=== PATIENT | male | born 1950 | race Caucasian/White ===

== ENCOUNTER 2020-10-18 09:26 | Day surgery (SDC) | payer MEDICARE ==
[~2020-10-18 09:26] MED LIST: Midazolam 1 MG/ML 2 ML SDV ONE; Propofol 200 MG/20 ML SDV ONE; fentaNYL 100 MCG/2 ML SDV ONE
[2020-10-18] MEDS ORDERED: Sodium Chloride 0.9% 1,000 ML IV SCH (10:00)
[2020-10-18] MEDS ORDERED: Midazolam 1 MG/ML 2 ML SDV ONE (10:32)
[2020-10-18] MEDS ORDERED: Propofol 200 MG/20 ML SDV ONE (10:32)
[2020-10-18] MEDS ORDERED: fentaNYL 100 MCG/2 ML SDV ONE (10:32)
--- NOTE | 2020-10-18 14:56 | OR ---
DATE OF PROCEDURE: 10/18/2020 SURGEON: Kei Saleh MD PROCEDURE PERFORMED: Colonoscopy. FINDINGS: 1. Ascending colon polyp, approximately 5 mm, completely removed using cold biopsy forceps. 2. Ascending colon polyp #2, approximately 5 mm, completely removed using cold biopsy forceps. 3. Colon mass at 60 cm, partially removed using endoscopic mucosal resection. 4. Descending colon polyp, approximately 1 cm, completely removed using hot snare wire device. 5. Significant tortuous sigmoid colon. COMPLICATIONS: None. HARVESTING CONTRACTOR: None. ANESTHESIA: MAC. PREOPERATIVE DIAGNOSIS: Screening colonoscopy. POSTOPERATIVE DIAGNOSIS: Screening colonoscopy. RISKS: Risks, benefits, alternatives, and limitations including, but not limited to infection, bleeding, perforation, false positives, and false negatives were explained to the patient, and he wished to proceed. PROCEDURE IN DETAIL: The patient was placed in the left lateral decubitus position. Digital rectal exam was performed without abnormality. The scope was introduced and advanced atraumatically to the ileocecal valve. A photo was taken of the appendiceal orifice. The scope was brought back, and the 2 small ascending colon polyps were identified and completely removed using cold biopsy forceps. No abnormal bleeding was noted. At approximately 60 cm, there was a large mass which encompassed approximately 1/3rd of the circumference of the colon. A large majority of this was removed using endoscopic mucosal resection techniques which included elevation in all 4 quadrants using Kandis ink and resection using hot snare wire device. No abnormal bleeding was noted after removal. Within the descending colon, the snare wire device was then used to remove an approximately 1 cm polyp. No other abnormalities were noted. The prep was marginal with large amount of liquid stool remaining. Suction and irrigation techniques were used to remove the majority of this. No abnormalities on retroflex. Greater than 8 minutes was spent removing the scope. The patient tolerated the procedure well. Kei Saleh MD /[id number]
== END 2020-10-18 12:37 | disposition home or self-care (01) ==
LOC: JP.SDS 09:26
PROVIDERS: ATTEND Surgery
DX: Z12.11 Encounter for screening for malignant neoplasm of colon (principal); D12.2 Benign neoplasm of ascending colon; D12.4 Benign neoplasm of descending colon; D12.6 Benign neoplasm of colon, unspecified; K63.89 Other specified diseases of intestine; E78.5 Hyperlipidemia, unspecified; I10 Essential (primary) hypertension; Z85.46 Personal history of malignant neoplasm of prostate
CPT/HCPCS: 45380; 45381; 45385; 45390; J2250; J2704; J3010; J7030; 88305

== ENCOUNTER 2020-12-13 07:23 | Day surgery (SDC) | payer MEDICARE ==
[2020-12-13] MEDS ORDERED: fentaNYL 100 MCG/2 ML SDV ONE (07:58)
[2020-12-13] MEDS ORDERED: Propofol 200 MG/20 ML SDV ONE ×2 (07:58→09:56)
[2020-12-13] MEDS ORDERED: Midazolam 1 MG/ML 2 ML SDV ONE (07:58)
[2020-12-13] MEDS ORDERED: Sodium Chloride 0.9% 1,000 ML IV SCH (08:30)
--- NOTE | 2020-12-13 13:24 | OR ---
DATE OF PROCEDURE: 12/13/2020 SURGEON: Kei Saleh MD PROCEDURE: Excision of lesion at approximately 110 cm, completely removed using endoscopic mucosal resection technique with elevating gel and Kandis Ink. COMPLICATION: None. PASTRY WRAPPER: None. PREOPERATIVE DIAGNOSIS: History of colon polyps. POSTOPERATIVE DIAGNOSIS: History of colon polyps. INDICATIONS: A 70-year-old male who has had a large polyp in this area and this was biopsied approximately 6 weeks ago concerning for malignancy. Pathology was found to be benign. PROCEDURE IN DETAIL: Scope was introduced and advanced atraumatically to the ileocecal valve. A photo was taken of the appendiceal orifice. Scope was brought back to the remainder of the colon. At about 110 cm, the lesion was identified. This was elevated using the elevating gel in all 4 quadrants. In addition, Kandis Ink was also used to re-gordon this area. The polyp itself was rather large and was sessile in nature, not amenable to being completely removed with 1 pass with the hot snare wire device. Therefore, this was removed in a partial piecemeal fashion. These areas were then removed. Minimal bleeding was noted. The procedure was completed. The patient tolerated the procedure well. Orders have been placed for repeat colonoscopy in 6 months. Procedure was terminated. The patient tolerated the procedure well. Kei Saleh MD /[id number]
== END 2020-12-13 14:00 | disposition home or self-care (01) ==
LOC: JP.SDS 07:23
PROVIDERS: ATTEND Surgery
DX: D12.6 Benign neoplasm of colon, unspecified (principal); K63.89 Other specified diseases of intestine
CPT/HCPCS: 45390; J2250; J2704; J3010; J7030

== ENCOUNTER 2021-07-08 06:30 | Day surgery (SDC) | payer MEDICARE ==
[2021-07-08] MEDS: Sodium Chloride 0.9% 1,000 ML IV SCH (07:13)
[2021-07-08] MEDS ORDERED: Propofol 200 MG/20 ML SDV ONE ×2 (07:19→08:14)
[2021-07-08] MEDS ORDERED: fentaNYL 100 MCG/2 ML SDV ONE (07:19)
[2021-07-08] MEDS ORDERED: Midazolam 1 MG/ML 2 ML SDV ONE (07:19)
== END 2021-07-08 09:45 | disposition home or self-care (01) ==
LOC: JP.SDS 06:30
PROVIDERS: ATTEND Surgery
DX: D12.6 Benign neoplasm of colon, unspecified (principal)
CPT/HCPCS: 88305; J2250; J2704; J3010; J7030